=== PATIENT | female | born 1990 | race Caucasian/White ===

== ENCOUNTER 2018-02-16 17:05 | Emergency (ER) | payer MEDICAID ==
[2018-02-16] MEDS ORDERED: LIDOCAINE 1% INJ-PF (10 MG/ML) 30 ML SDV INJ ONE (18:22)
[2018-02-16 19:47] VITALS: BP 122/91
--- NOTE | 2018-02-16 19:47 | ER Document Report ---
ED General - General Chief Complaint: Laceration Stated Complaint: FINGER LACERATION Time Seen by Provider: 02/16/18 18:13 Information source: Patient Notes: Patient is a 27-year-old female comes emergency room complaining of laceration to right middle finger. Patient states that she was using a serrated knife to open up a package that had a sip type. She inserted a knife and pulled the subtype gave weight quicker than she thought she pulled away from it she cut her right right middle finger along the lateral aspect of the knuckle. She states that she quickly rinsed it off and she attempted to move it up and down to make sure there was no other damage. She was able to move the finger in normal fashion with flexion and extension. She could not get it to quit bleeding so she came to ER. Patient also admits to history of insulin- dependent diabetes which includes Lantus. TRAVEL OUTSIDE OF THE [place] IN LAST 30 DAYS: No - HPI Onset: Just prior to arrival Onset/Duration: Sudden Quality of pain: Achy, Sharp, Throbbing Severity: Moderate Pain Level: 3 Associated symptoms: None Exacerbated by: Movement Relieved by: Remaining still Similar symptoms previously: No Recently seen / treated by doctor: No - Related Data Allergies/Adverse Reactions: No Known Allergies Allergy (Verified 02/16/18 17:06) Past Medical History - General Information source: Patient - Social History Smoking Status: Current Every Day Smoker Cigarette use (# per day): Yes Chew tobacco use (# tins/day): No Smoking Education Provided: Yes Frequency of alcohol use: None Drug Abuse: None Family History: Reviewed & Not Pertinent Patient has suicidal ideation: No Patient has homicidal ideation: No Endocrine Medical History: Reports: Hx Diabetes Mellitus Type 2 Renal/ Medical History: Denies: Hx Peritoneal Dialysis Past Surgical History: Reports: Hx Oral Surgery - wisdom Review of Systems - Review of Systems Constitutional: No symptoms reported EENT: No symptoms reported Cardiovascular: No symptoms reported Respiratory: No symptoms reported Gastrointestinal: No symptoms reported Genitourinary: No symptoms reported Female Genitourinary: No symptoms reported Musculoskeletal: Joint pain, Joint swelling Skin: Lesions, Other - Laceration finger Hematologic/Lymphatic: No symptoms reported Neurological/Psychological: No symptoms reported -: Yes All other systems reviewed and negative Physical Exam - Vital signs Vitals: Temp Pulse Resp BP Pulse Ox 98.5 F 73 18 130/78 H 100 02/16/18 17:32 02/16/18 17:32 02/16/18 17:32 02/16/18 17:32 02/16/18 17:32 Interpretation: Hypertensive - Notes Notes: Well-nourished well-developed 27-year-old female apparent distress but uncomfortable appearing - General General appearance: Alert, Anxious - HEENT Head: Normocephalic, Atraumatic Eyes: Normal - Respiratory Respiratory status: No respiratory distress Chest status: Nontender Breath sounds: Normal. No: Rales, Rhonchi, Stridor, Wheezing Chest palpation: Normal - Cardiovascular Rhythm: Regular Heart sounds: Normal auscultation Murmur: No - Extremities General upper extremity: Tender, Normal ROM, Normal strength, Normal temperature General lower extremity: Normal inspection, Nontender, Normal strength, Normal temperature Hand: Tender, Laceration, Other - Examination of patient's laceration shows that she has full range of motion. There does not appear to be any involvement of the tendon. This was done under bloodless field examination. Patient has good cap refill in the nail bed of the right finger. She has sensation distally to the laceration.. No: Dislocation, Ecchymosis, Tendon deficit - Neurological Neuro grossly intact: Yes Cognition: Normal Orientation: AAOx4 [place] Coma Scale Eye Opening: Spontaneous Liss Coma Scale Verbal: Oriented [place] Coma Scale Motor: Obeys Commands [place] Coma Scale Total: 15 Speech: Normal - Skin Skin Temperature: Warm Skin Moisture: Dry Skin irregularity: Laceration, other - See hand above this laceration Course - Re-evaluation Re-evalutation: 02/18/18 13:36 To reiterate examination of the finger show the patient had good flexion- extension so there are no sign of tendon involvement. She has good cap refill in the nailbeds of the bed and she also has good sensation distally. At this time sending patient home with a aluminum finger splint in normal anatomic band and having her come back in 8-10 days for suture removal. Since she is diabetic I placed her on antibiotics for a longer extended period of time and informed her she is to keep this clean and dry for at least 48 hours. She has been instructed at any time it does not appear to be healing rectally or she has any concerns return to ER for recheck prior to coming to get the stitches out. - Vital Signs Vital signs: Temp Pulse Resp BP Pulse Ox 98.5 F 78 16 122/91 H 99 02/16/18 17:32 02/16/18 19:46 02/16/18 19:46 02/16/18 19:46 02/16/18 19:46 Procedures - Immobilization Left 3rd digit Pre-Proc Neuro Vasc Exam: Normal Immobilizer type: Finger splint (Static) Performed by: PCT Post-Proc Neuro Vasc Exam: Normal Alignment checked and good: Yes - Laceration/Wound Repair Left 3rd digit Time completed: 19:43 Wound length (cm): 2 Wound's Depth, Shape: Into muscle, Linear Laceration pre-procedure: Sterile PPE donned, Betadine prep applied, Sterile drapes applied Anesthetic type: 1% Lidocaine Volume Anesthetic (mLs): 2 Wound explored: Clean Irrigated w/ Saline (mLs): 200 Wound Debrided: Minimal Wound Repaired With: Sutures Suture Size/Type: 4:0, Prolene Number of Sutures: 5 Post-procedure wound care: Sterile dressing applied, Splint applied Post-procedure NV exam normal: Yes Complications: No Discharge - Discharge Clinical Impression: Finger laceration Qualifiers: Encounter type: initial encounter Finger: middle finger Damage to nail status: without damage Foreign body presence: without foreign body Laterality: left Qualified Code(s): S61.213A - Laceration without foreign body of left middle finger without damage to nail, initial encounter Condition: Stable Disposition: HOME, SELF-CARE Instructions: Laceration Care ([facility]), Oral Narcotic Medication ([facility]), Prophylactic Antibiotic ([facility]), Soap Cleansing ([facility]) Additional Instructions: Home and rest. Medication as prescribed. Please take all your antibiotics. I written for 2 Diflucan pills given directions on that as well. I also written you for for pain medication pills for the throbbing that would go on for the next 24 hours. After that ibuprofen or Tylenol for pain. You can use a Band- Aid with antibiotic cream or ointment and change the dressing 2-3 times a day and when wet or dirty. You may stop using the splint after for 5 days and he can start leaving open to air after 5 or 6 days. Wants you to return to ER in anywhere from 8-10 days for suture removal. Should you have any concerns or problems if it does not appear to be healing appropriately come back before then. Remember I could put 100 stitches in but if you abuse it they will pull out so be careful with your finger. Prescriptions: Cephalexin Monohydrate [Keflex 500 mg Capsule] 500 mg PO Q6H 7 Days #28 capsule Fluconazole [Diflucan] 150 mg PO ASDIR #2 tablet Hydrocodone/Acetaminophen [[place] 5-325 mg Tablet] 1 tab PO Q6 PRN #4 tablet PRN Reason: Forms: Elevated Blood Pressure Referrals: DEEPALI STEINER MD [Primary Care Provider] - Follow up as needed
== END 2018-02-16 20:07 | disposition home or self-care (01) ==
LOC: ER 17:05
PROC: 0HQGXZZ Repair Left Hand Skin, External Approach (ICD-10-PCS; principal; 2018-02-16)
DX: S61.213A Laceration without foreign body of left middle finger without damage to nail, initial encounter (principal); W26.0XXA Contact with knife, initial encounter; E11.9 Type 2 diabetes mellitus without complications; Z79.4 Long term (current) use of insulin; F17.210 Nicotine dependence, cigarettes, uncomplicated
CPT/HCPCS: 99282; 12001; J3490

== ENCOUNTER 2018-03-01 12:58 | Emergency (ER) | payer MEDICAID ==
[2018-03-01 13:03] VITALS: BP 125/69
--- NOTE | 2018-03-01 13:12 | ER Document Report ---
HPI - HPI Patient complains to provider of: suture removal Onset: Other - 12 days Pain Level: Denies Context: 27 yo female here for suture removal 3rd left finger placed 12 days ago. no problems. Associated Symptoms: None Exacerbated by: Denies Relieved by: Denies - ROS ROS below otherwise negative: Yes Systems Reviewed and Negative: Yes All other systems reviewed and negative Past Medical History - General Information source: Patient - Social History Smoking Status: Never Smoker Lives with: Spouse/Significant other Family History: Reviewed & Not Pertinent Endocrine Medical History: Reports: Hx Diabetes Mellitus Type 2 Renal/ Medical History: Denies: Hx Peritoneal Dialysis Past Surgical History: Reports: Hx Oral Surgery - wisdom Vertical Provider Document - CONSTITUTIONAL Agree With Documented VS: Yes Exam Limitations: No Limitations General Appearance: No Apparent Distress - INFECTION CONTROL TRAVEL OUTSIDE OF THE [place] IN LAST 30 DAYS: No - MUSCULOSKELETAL/EXTREMETIES Musculoskeletal/Extremeties: MAEW, FROM, Non-Tender Notes: 5 sutures removed 3rd [place] left middle finger. - NEURO Motor/Sensory: No Motor Deficit, No Sensory Deficit Course - Re-evaluation Re-evalutation: 03/01/18 13:12 #5 sutures removed from the left third palmar finger full range of motion with no wound dehiscence - Vital Signs Vital signs: Temp Pulse Resp BP Pulse Ox 98.1 F 64 18 125/69 97 03/01/18 13:01 03/01/18 13:01 03/01/18 13:01 03/01/18 13:01 03/01/18 13:01 Discharge - Discharge Clinical Impression: Suture removal Condition: Good Disposition: HOME, SELF-CARE Instructions: Suture Removal Additional Instructions: Keep the wound clean and dry and you can put a Band-Aid on Return to the emergency room any concerns Forms: Return to Work Referrals: DEEPALI STEINER MD [Primary Care Provider] - Follow up as needed
== END 2018-03-01 13:25 | disposition home or self-care (01) ==
LOC: ER 12:58
DX: Z48.02 Encounter for removal of sutures (principal); E11.9 Type 2 diabetes mellitus without complications